=== PATIENT | male | born 1980 | race African-American/Black ===

== ENCOUNTER 2023-07-26 13:10 | Emergency (ER) | payer MEDICAID ==
[~2023-07-26] VITALS: Ht 177.8 cm; Wt 81.6 kg
[2023-07-26] MEDS ORDERED: ALBUTEROL FS 2.5 MG/3 ML VIAL.NEB NEB ONE (15:00)
[2023-07-26] MEDS ORDERED: IPRATROPIUM NEB FS 0.5 MG/2.5 ML AMPUL.NEB NEB ONE (15:00)
[2023-07-26] MEDS ORDERED: predniSONE 50 MG TABLET PO ONE (15:00)
[2023-07-26] MEDS ORDERED: IPRATROPIUM NEB FS 0.5 MG/2.5 ML AMPUL.NEB ONE (15:05)
[2023-07-26] MEDS ORDERED: ALBUTEROL FS 2.5 MG/3 ML VIAL.NEB ONE (15:05)
[2023-07-26 15:12] VITALS: O2SAT 93
[2023-07-26 15:13] LABS: BASOPHILS % (AUTO) 0.3 % (0.0-2.0); EOSINOPHILS # (AUTO) 0.2 K/uL (0.0-0.7); EOSINOPHILS % (AUTO) 3.6 % (0.0-6.0); HEMATOCRIT 46 % (39-51); HEMOGLOBIN 15.3 g/dL (13.5-17.5); LYMPHOCYTES # (AUTO) 1.4 K/uL (0.8-4.8); LYMPHOCYTES % (AUTO) 28.7 % (20.0-44.0); MEAN CORPUSCULAR HEMOGLOBIN 31 PG (26.0-33.0); MEAN CORPUSCULAR HGB CONC 34 g/dl (31.0-36.0); MEAN CORPUSCULAR VOLUME 91 fL (80-96); MONOCYTES # (AUTO) 0.3 K/uL (0.1-1.30); MONOCYTES % (AUTO) 6.9 % (2.0-12.0); NEUTROPHILS % (AUTO) 60.5 % (43.0-81.0); PLATELET COUNT (AUTO) 268 K/uL (150-450); RED BLOOD CELL COUNT(AUTO) 5.01 MIL/uL (4.5-6.0); RED CELL DISTRIBUTION WIDTH 13.5 % (11.5-15.0)
[2023-07-26 15:25] VITALS: O2SAT 100
[2023-07-26 15:25] LABS: CALCIUM, SERUM 9.3 mg/dL (8.5-10.1); CARBON DIOXIDE 26 mmol/L (21-32); CHLORIDE 100 mmol/L (98-107); CREATININE 0.9 mg/dL (0.6-1.3); GLUCOSE 98 mg/dL (74-106); POTASSIUM 3.8 mmol/L (3.5-5.1); SODIUM SERUM 133 mmol/L (136-145); UREA NITROGEN, BLOOD 14 mg/dL (7-18)
[2023-07-26] MEDS ORDERED: predniSONE 20 MG TABLET ONE (15:27)
[2023-07-26] MEDS ORDERED: PRED50TA PO (16:04)
[2023-07-26] MEDS ORDERED: ALBU18HF2 INH (16:04)
[2023-07-26 16:16] VITALS: BP 144/83; TEMP 98.3; O2SAT 100
== END 2023-07-26 16:16 | disposition home or self-care (01) ==
LOC: ER 13:15
DX: R06.02 Shortness of breath (principal); F32.A Depression, unspecified; F41.9 Anxiety disorder, unspecified; Z79.899 Other long term (current) drug therapy
CPT/HCPCS: 99285; 71045; 93005 ×2; 85025; 80048; 85378; 36415; 84484; 94640; J7512